=== PATIENT | female | born 1955 | race Caucasian/White ===

== ENCOUNTER → 2020-05-22 15:49 | Outpatient (CLI) | payer OTHER, SELFPAY ==
--- NOTE | 2020-05-22 | DI.MG.S_ITS ---
BILATERAL DIGITAL SCREENING MAMMOGRAM 3D/2D WITH CAD: 05/22/2020 CLINICAL: Routine screening. Comparison is made to exams dated: 06/21/2013 mammogram, 03/31/2012 mammogram, and 10/05/2006 mammogram - [facility]. The tissue of both breasts is extremely dense, which lowers the sensitivity of mammography. Current study was also evaluated with a Computer Aided Detection (CAD) system. No significant masses, calcifications, or other findings are seen in either breast. There has been no significant interval change. IMPRESSION: NEGATIVE There is no mammographic evidence of malignancy. A 1 year screening mammogram is recommended. This exam was interpreted at Station ID: [id number]. NOTE: For mammograms, a report in lay terms will be sent to the patient. Approximately 15% of breast malignancies will not be visualized mammographically. In the management of a palpable breast mass, a negative mammogram must not discourage biopsy of a clinically suspicious lesion. Electronically Signed By: Francisco juárez/natalee:05/22/2020 17:05:21 letter sent: Normal Exam ACR BI-RADS Category 1: Negative [id number]
== END ==
PROVIDERS: PCP Internal Medicine; Referring Provider Internal Medicine; Visit Provider Internal Medicine
DX: Z12.31 Encounter for screening mammogram for malignant neoplasm of breast (principal)
CPT/HCPCS: 77063; 77067

== ENCOUNTER → 2020-07-11 11:07 | Outpatient (CLI) | payer OTHER, SELFPAY ==
[2020-07-11 12:56] LABS: COVID19 -Nasal RAPID Negative (Negative)
== END ==
PROVIDERS: PCP Internal Medicine; Visit Provider Nurse Practitioner
DX: Z20.822 Contact with and (suspected) exposure to COVID-19 (principal)
CPT/HCPCS: 87635

== ENCOUNTER 2020-07-13 11:47 | Day surgery (SDC) | payer OTHER, SELFPAY ==
[2020-07-13] VITALS (12 sets, daily range): BP systolic 117–137; BP diastolic 76–90; PULSE 58–78; RESP 10–16; TEMP 36.2–37.1; O2SAT 97–99; BMI 20.5
--- NOTE | 2020-07-13 | PATH_ITS ---
[facility] Accession Number: [id number] . 01 Material submitted: . PART A: colon - ASCENDING COLON POLYP 1.5CM PART B: colon - ASCENDING COLON POLYP 4MM PART C: colon - TRANSVERSE COLON PART D: sigmoid colon - SIGMOID COLON POLYP 2MM . 01 Clinical history: . C: TRANSVERSE COLON IRRITATED MUCOSA BIOPSY . 02 Diagnosis: A. Ascending Colon, Polyp 1.5 cm, Biopsy: Tubular adenoma. . B. Ascending Colon, Polyp 4 mm, Biopsy: Tubular adenoma. . C. Transverse Colon, Biopsy: Colonic mucosa with no diagnostic abnormality. Negative for active, chronic, and microscopic colitis. Negative for dysplasia and malignancy. . D. Sigmoid Colon, Polyp 2 mm, Biopsy: Hyperplastic polyp. [facility] 07/17/2020 1336 Local . 02 Electronically signed: . Noemy Suero MD, Pathologist NPI- [id number] . 01 Gross description: . Part A: ASCENDING COLON POLYP 1.5CM: Received in formalin is 1 fragment(s) of guzman, soft tissue measuring 0.4 x 0.3 x 0.3 cm submitted entirely in 1 cassette(s) Part B: ASCENDING COLON POLYP 4MM: Received in formalin are 2 fragment(s) of guzman, soft tissue measuring 0.3 x 0.3 x 0.2 cm to 0.3 x 0.2 x 0.2 cm submitted entirely in 1 cassette(s) Part C: TRANSVERSE COLON: Received in formalin is 1 fragment(s) of guzman, soft tissue measuring 0.3 x 0.3 x 0.2 cm submitted entirely in 1 cassette(s) Part D: SIGMOID COLON POLYP 2MM: Received in formalin is 1 fragment(s) of guzman, soft tissue measuring 0.4 x 0.3 x 0.3 cm submitted entirely in 1 cassette(s) /[facility]J 07/14/2020 0750 Local . 02 Pathologist provided ICD-10: D12.2 . 02 CPT . 374042, 823774, 845321, 069813 Performed at: 01 [facility] [address] [id number] MD Francisco Henderson MD Phone: [phone] Performed at: 02 [facility] [address] [place] [id number] MD Noemy Suero MD Phone: [phone]
--- NOTE | 2020-07-13 11:50 | PM.HP.1 ---
History of Present Illness History of Present Illness Date Patient Seen: 07/13/20 Chief complaint: SDC Narrative: 64 Years Old Female seen today for consideration of a screening colonoscopy. She has had two previous colonoscopies, one with polyps. There have been no lower GI symptoms suggesting disease such as change in bowel habits, bleeding, abdominal pain or anemia. There's been no family history of colon cancer or colon polyps. Overall health issues have been stable, including no major cardiac events for at least 6 weeks. Past Medical History: Pregnancies: 0 Live Births: 0 Miscarriages: 0 Living Children: 1 (adopted) Alcoholic - Remission for 19 years Eye: Dr. 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: 2 Education: completed in 1979 Patient History Surgical History (Updated 10/13/17 @ 06:23 by Conversion Provider) History of tonsillectomy Family & Social History Family History (Updated 07/27/17 @ 00:00 by Conversion Provider) Brother Age: 63 Ulcerative colitis Meds Home Medications and Allergies Home Medications Medication Instructions Recorded Confirmed Type [LATANOPROST .005 % S] 1 drp OU HS #25 07/28/17 07/13/20 History propranolol 20 mg PO DAILY PRN 07/13/20 07/13/20 History Allergies Allergy/AdvReac Type Severity Reaction Status Date / Time No Known Drug Allergies Allergy Verified 07/13/20 12:33 Review of Systems Review of Systems ROS: Yes All systems reviewed with the patient and are negative except as otherwise documented Exam Narrative Exam Narrative: General: well developed, well nourished, in no acute distress, Head: normocephalic and atraumatic, Lungs: normal respiratory effort, clear bilaterally to auscultation, no wheezes rales or rhonchi. Heart: normal rate and regular rhythm, no murmurs, rubs, gallops, or clicks, Abdomen: abdomen soft and non-tender without masses, organomegaly, or abdominal wall hernias, bowel sounds positive. Skin: intact without suspicious lesions or rashes, Psych: alert and cooperative; normal mood and affect; normal attention span and concentration; cognition, remote and recent memory appear to be intact, Assessment & Plan Assessment & Plan narrative: 1. History of colon polyps 2. Screening for colon cancer Plan for colonoscopy. The nature and character of the procedure as well as anticipated results were discussed. The possibility of not completing the procedure was also discussed. Possible complications including aspiration pneumonia, bleeding, perforation and reaction to medications either for sedation or preparation and missed lesions were discussed. Questions were answered and proceeding to the colonoscopy was elected. Informed consent signed. I sincerely appreciate the referral allowing me to participate in this patient's care. Please contact me with any questions or concerns.
--- NOTE | 2020-07-13 11:52 | PM.OP.ENDO ---
Operative Date/Time/Diagnoses Date of procedure: 07/13/20 Procedure Notes SCOAP/Timeout: 1:04 p.m. Procedure in detail: ENDOSCOPIST: Digna Wright MD Sedation RN: Telma Hoffman RN Sedation start time: 13:05 Sedation end time: 1:46 p.m. PROCEDURE: Colonoscopy biopsy and placement of Spot INDICATIONS: 1. History of colon polyps 2. Screening for colon cancer MEDICATION: Levsin 0.125 mg sublingual, incremental doses of Versed and fentanyl until appropriate level sedation achieved. ASA CLASS: 1 CECAL WITHDRAWAL TIME: 21 minutes COMPLICATIONS: None. EXTENT OF PROCEDURE: Cecum. QUALITY OF PREP: Good with portions of liquid stool. PROCEDURE: Prior to insertion of the colonoscope, a digital rectal examination was accomplished with circumferential palpation of the distal rectal mucosa without significant findings being noted. The high-definition pediatric colonoscope was passed into the rectum in the usual fashion and advanced over to the cecum without difficulty. The ileocecal valve, appendiceal stoma, and medial wall all could be inspected and no abnormalities were seen. ASCENDING COLON: As the colonoscope was withdrawn, care was taken to expose and inspect the haustral folds and a 1.5 cm spreading sessile polyp was seen and targeted biopsy taken x1. Spot placed on the medial and lateral lomas, approximately 2 cm distal to the lesion. A 4 mm polyp was seen distal to that lesion was removed with cold biopsy forceps. Colonic mucosa throughout insertion and withdrawal appeared to be inflamed with small superficial hemorrhages, targeted biopsy taken x1 in the transverse colon. HEPATIC FLEXURE: Minor diverticulosis, otherwise, normal, no polyps. Mucosal changes as noted above. TRANSVERSE COLON: Minor diverticulosis, otherwise, normal, no polyps. Mucosal changes as noted above. DESCENDING COLON: Moderate diverticulosis, otherwise, normal, no polyps. Mucosal changes as noted above. SIGMOID COLON: 2 mm polyp removed with cold biopsy forceps. Otherwise, moderate diverticulosis and mucosal changes as noted above. RECTUM: Normal. J maneuver was produced. There was no significant perianal disease. The J maneuver was broken. The remainder of the rectum was inspected and there was no external hemorrhoid disease. The scope was withdrawn. IMPRESSION: 1. Ascending polyp x1, spreading sessile, 1.5 cm, targeted biopsy taken x1, spot placement x2 2. Ascending polyp x1, 4 mm, removed with cold biopsy forceps 3. Pancolonic inflamed mucosa 4. Sigmoid polyp x1, 2 mm, removed with cold biopsy forceps 5. Diverticulosis, right and left-sided, minor to moderate PLAN: 1. Follow-up in clinic status post pathology results. The possibility of a missed lesion including a malignancy has been discussed with the patient previously. Potential alarm symptoms have been discussed and should be reported immediately.
[2020-07-13] MEDS: LACTATED RINGERS 1,000 ML 200 ML IV (12:31)
[2020-07-13] MEDS: HYOSCYAMINE 0.125 MG TABLET PO (12:33)
[2020-07-13] MEDS: MIDAZOLAM 5 MG/5 ML VIAL IV (13:21)
[2020-07-13] MEDS: fentaNYL 250 MCG/5 ML INJ IV (13:21)
[2020-07-13] MEDS: METHYLENE BLUE 50 MG/10 ML VIAL INJ (13:42)
== END 2020-07-13 15:16 | disposition home or self-care (01) ==
PROVIDERS: PCP Internal Medicine; Referring Provider Student in an Organized Health Care Education/Training Program; Visit Provider Student in an Organized Health Care Education/Training Program
PROC: 0DJD8ZZ Inspection of Lower Intestinal Tract, Via Natural or Artificial Opening Endoscopic (ICD-10-PCS; CPT 45378; principal; 2020-07-13 13:00)
DX: Z12.11 Encounter for screening for malignant neoplasm of colon (principal); Z86.010 Personal history of colon polyps; K57.30 Diverticulosis of large intestine without perforation or abscess without bleeding; D12.2 Benign neoplasm of ascending colon
CPT/HCPCS: 45381; 45380; J2250; J3010; Q9968

== ENCOUNTER → 2020-11-08 09:19 | Outpatient (CLI) | payer OTHER, SELFPAY ==
[2020-11-08 10:27] LABS: COVID19 -Nasal RAPID Negative (Negative)
== END ==
PROVIDERS: PCP Internal Medicine; Visit Provider Specialist
DX: Z20.822 Contact with and (suspected) exposure to COVID-19 (principal)
CPT/HCPCS: 87635; C9803

== ENCOUNTER 2020-11-09 06:31 | Day surgery (SDC) | payer OTHER, SELFPAY ==
[2020-11-09] VITALS (7 sets, daily range): BP systolic 125–174; BP diastolic 74–85; PULSE 55–71; RESP 13–15; TEMP 36–36.6; O2SAT 96–98; BMI 21.4
--- NOTE | 2020-11-09 | PATH_ITS ---
[facility] Accession Number: [id number] . 01 Material submitted: . PART A: colon - ASCENDING POLYP PART B: body - POLYP AT 40CM . 02 Diagnosis: A. Ascending Colon, Polyp, Biopsy: Tubular adenoma. . B. Colon, Polyp at 40 cm, Biopsy: Tubulovillous adenoma. No evidence of malignancy or high-grade dysplasia. [facility] 11/15/2020 1049 Local . 02 Electronically signed: . Noemy Suero MD, Pathologist NPI- [id number] . 01 Gross description: . A. The specimen is received in formalin, labeled ascending polyp, and consists of two guzman-pink polyps measuring 0.5 x 0.5 x 0.3 cm and 0.8 x 0.5 x 0.4 cm. The margins are inked blue and green. The polyps are bisected and entirely submitted in cassette A1. B. The specimen is received in formalin, labeled polyp at 40 cm, and consists of multiple guzman-pink fragments of soft tissue measuring 1.2 x 1.0 x 0.4 cm in aggregate. The largest fragment is bisected, and the specimen is trisected and entirely submitted in cassette B1. (EA:[id number]) /[facility] 11/10/2020 1702 Local . 02 Pathologist provided ICD-10: D12.2, D12.6 . 02 CPT . 107242, [id number] Performed at: 01 [facility] [address] [id number] MD Francisco Henderson MD Phone: [phone] Performed at: 02 [facility] [address] [place], [place] [id number] MD Noemy Suero MD Phone: [phone]
[2020-11-09] MEDS: LACTATED RINGERS 1,000 ML 42 ML IV (07:27)
--- NOTE | 2020-11-09 07:41 | PM.HP.1 ---
History of Present Illness History of Present Illness Date Patient Seen: 11/09/20 Time Patient Seen: 07:36 Chief complaint: SDC Narrative: The patient is a woman who had a flat polyp biopsied located in her ascending colon in July by Dr. Wright. She had some plans and has delayed coming for an attempt at complete removal. She is here now for repeat colonoscopy as the lesion is in the ascending colon. Patient History Medical History Adenomatous colon polyp Healthy adult Surgical History History of tonsillectomy Family & Social History Family History Brother Age: 64 Ulcerative colitis Father Cancer Grandfather Heart disease Social History: household members none Tobacco & Substance use: Smoking Status Never smoker alcohol intake never Substance Use Type marijuana Meds Home Medications and Allergies Home Medications Medication Instructions Recorded Confirmed Type propranolol 20 mg PO DAILY PRN 07/13/20 11/09/20 History latanoprost 0.005 % eye drops 1 drp OPHTHALMIC (EYE) DAILY 08/17/20 11/09/20 History Allergies Allergy/AdvReac Type Severity Reaction Status Date / Time No Known Drug Allergies Allergy Verified 08/17/20 13:14 Review of Systems Review of Systems ROS: Yes All systems reviewed with the patient and are negative except as otherwise documented Exam Vital Signs (past 8 hours): - 11/09/20 07:28 Temperature 97.9 F Pulse Rate 71 Respiratory Rate 14 Blood Pressure 174/84 H Pulse Oximetry 98 Oxygen Delivery Method Room Air Narrative Exam Narrative: Pleasant cooperative patient no apparent distress. Lungs are clear to auscultation. No rales or rhonchi. Heart regular rate and rhythm no murmur gallop. Abdomen is soft nontender without mass. No obvious hernias. Patient is alert and oriented x3. Assessment & Plan Assessment & Plan narrative: The patient for a screening colonoscopy. I have discussed the procedure with them. Risks of bleeding, perforation which would necessitate major operation, failure to find remove all lesions, the potential tattoo were all discussed. All questions were answered. They wished to proceed.
--- NOTE | 2020-11-09 07:44 | PM.PREOP ---
Pre-operative Note COVID-19 COVID-19 status: Negative Result date/Date tested (Pos, Neg/Pending): 11/08/20 Interval Note History & Physical reviewed/Exam performed by Physician: Yes Changes to H&P: No ASA Class (for procedural sedation): I
[2020-11-09] MEDS: fentaNYL 250 MCG/5 ML INJ IV (08:15)
[2020-11-09] MEDS: MIDAZOLAM 5 MG/5 ML VIAL IV (08:30)
--- NOTE | 2020-11-09 08:45 | PM.OP.ENDO ---
Operative Date/Time/Diagnoses Date of procedure: 11/09/20 Time of procedure: 08:45 Pre-op diagnosis: Polyp in the ascending colon. Repeat colonoscopy to remove any residual. Post-op diagnosis: same (Additional polyp found at 40 cm from the anal verge on a stalk.) Procedure & Clinicians Study performed: Colonoscopy with hot snare polypectomy x2. Same procedure as scheduled: Yes Indications: Residual polyp in the ascending colon. Repeat colonoscopy to remove the remainder of the lesion. Surgeon: Fabrice Mc Procedure Notes SCOAP/Timeout: Performed Procedure in detail: The patient was placed in the left lateral decubitus position and underwent IV sedation directed by the surgeon consisting of fentanyl and Versed. Digital exam was remarkable for an increased sphincter tone. The scope was inserted and advanced through the rectum into the sigmoid, descending, transverse, and ascending colon. The patient had very extensive sigmoid diverticulosis and was quite difficult to get through the sigmoid. I had to reposition the patient in order to make my way through. In order to traverse the transverse colon I had to add a stiffener. Pressure was also applied. In the ascending colon I noted the polyp that was to be removed.. The cecum was reached identified by the ileocecal valve. The scope was gradually brought out. In the ascending colon I used a hot snare to remove the polyp in 2 pieces. I then cauterized the edges extensively to make sure there was complete destruction as this was a flat polyp. The timer was then started and the scope slowly backed out. An additional Polyp on a stalk was found at 40 cm from the anal verge. This polyp was snared across the stalk and completely removed. The scope was slowly withdrawn. The appearance was remarkable as I came through the anus for internal hemorrhoids.. The scope was removed and the patient tolerated the procedure well. The prep was good. Scope withdrawal time: 7 minutes(8.5 TOTAL) Findings: diverticulitis, internal hemorrhoids and polyp Specimen(s): other (Two polyps) Complications: none Post-procedure Recommendations: Colonscopy in 3 years Follow up: as needed Disposition: PACU
== END 2020-11-09 09:45 | disposition home or self-care (01) ==
PROVIDERS: PCP Internal Medicine; Referring Provider Internal Medicine; Visit Provider Specialist
PROC: 0DJD8ZZ Inspection of Lower Intestinal Tract, Via Natural or Artificial Opening Endoscopic (ICD-10-PCS; CPT 45378; principal; 2020-11-09 07:45)
DX: D12.2 Benign neoplasm of ascending colon (principal); D12.6 Benign neoplasm of colon, unspecified; K57.30 Diverticulosis of large intestine without perforation or abscess without bleeding
CPT/HCPCS: 45385; J2250; J3010

== ENCOUNTER 2024-02-12 07:40 | Day surgery (SDC) | payer OTHER, SELFPAY ==
[2024-02-12 08:07] VITALS: BP 151/84; PULSE 84; RESP 18; TEMP 36.3; O2SAT 96
[2024-02-12] MEDS: LACTATED RINGERS 1,000 ML 42 ML IV ×2 (08:15→09:05)
--- NOTE | 2024-02-12 08:46 | PM.HP.1 ---
History of Present Illness History of Present Illness Date Patient Seen: 02/12/24 Time Patient Seen: 08:46 Chief complaint: Colonoscopy Narrative: H/o large colon polyp resected endoscopically last year requiring 2 colonoscopies. Here for follow up. [facility] Medical History Adenomatous colon polyp Healthy adult Surgical History History of tonsillectomy Family History Brother Age: 67 Ulcerative colitis Father Cancer Grandfather Heart disease Social History marital status: unknown household members: none occupational status: employed Smoking Status: Never smoker alcohol intake: former Meds Home Medications and Allergies Home Medications Medication Instructions Recorded Confirmed Type propranolol 20 mg tablet 20 mg PO DAILY PRN Anxiety 07/13/20 02/12/24 History latanoprost 0.005 % eye drops 1 drp ophthalmic (eye) DAILY 08/17/20 02/12/24 History Allergies Allergy/AdvReac Type Severity Reaction Status Date / Time No Known Drug Allergies Allergy Verified 02/12/24 08:02 Review of Systems Review of Systems ROS: Yes All systems reviewed with the patient and are negative except as otherwise documented Exam Vital Signs (past 8 hours): - 02/12/24 08:07 Temperature 97.3 F L Pulse Rate 84 Respiratory Rate 18 Blood Pressure 151/84 H Pulse Oximetry 96 Oxygen Delivery Method Room Air Oxygen Delivery Method Room Air Const General: cooperative, healthy appearing and comfortable Nutritional Appearance: average body habitus [facility] Head: normocephalic and atraumatic Eyes General: appearance normal, both eyes and all related structures Sclera: sclerae normal Neck Neck: trachea midline Resp Effort & Inspection: normal respiratory effort and able to speak in complete sentences Cardio Rate: regular rate Rhythm: regular rhythm GI Palpation: soft and No tender Skin General: turgor normal and atrophy Neuro General: patient alert, patient awake and patient oriented x3 Cognition: normal cognition Psych Appearance: grossly normal Mental Status: mental status grossly normal Affect: normal affect Judgment: judgment good Assessment & Plan Assessment & Plan narrative: H/o colon polyps Plan: colonoscopy with anesthesia Time-Based Coding :: [TOTAL MINUTES] spent with patient and on the chart (including review of chart, obtaining history, exam, reviewing outside data, placing orders, documenting exam and treatment plan, and counseling patient) on [DATE].
--- NOTE | 2024-02-12 08:50 | PM.OP.COLON ---
Operative Date/Time/Diagnoses Date of procedure: 02/12/24 Time of procedure: 08:50 Pre-op diagnosis: Colon cancer screening Post-op diagnosis: same Procedure & Clinicians Study performed: Colonoscopy with anesthesia Same procedure as scheduled: Yes Indications: History of colon polyps Surgeon: Jesi Golden Procedure Notes Procedure in detail: Preop diagnosis: Colon cancer screening, history of colon polyps Postop diagnosis: Same Operative procedure: Colonoscopy with anesthesia Surgeon: Gela Golden MD Findings: Severe large diverticuli through the descending colon. Tattoo was seen in the right colon from previous removal of a polyp and no regrowth is identified. No other polyps identified. Procedure: Patient placed in a lateral position. Rectal exam performed showing normal tone no masses. Colonoscope was inserted into the rectum and advanced to ileocecal valve with minimal difficulty. Insufflation extraction scope and the above findings. Retroflex was included in the rectum. Impression: Tattoo identified from the previous large polyp resected by Dr. Jesusita yee. No regrowth identified. No other polyps identified. Large severe diverticulosis of the descending colon Plan: Repeat colonoscopy in 5 years unless otherwise indicated by change in clinical condition Findings: diverticulitis Specimen(s): none sent Complications: none Post-procedure Recommendations: Colonoscopy in 5 years Follow up: as needed Disposition: PACU
[2024-02-12 09:14] VITALS: BP 151/84; PULSE 62; RESP 16; TEMP 36.2; O2SAT 98
[2024-02-12 09:20] VITALS: BP 140/81; PULSE 60; RESP 15; O2SAT 98
[2024-02-12 09:24] VITALS: BP 125/88; PULSE 79; RESP 13; TEMP 36.1; O2SAT 97
[2024-02-12 09:28] VITALS: BP 150/75; PULSE 64; RESP 13; O2SAT 97
== END 2024-02-12 09:30 | disposition home or self-care (01) ==
PROVIDERS: PCP Internal Medicine; Referring Provider Surgery; Visit Provider Surgery
PROC: 0DJD8ZZ Inspection of Lower Intestinal Tract, Via Natural or Artificial Opening Endoscopic (ICD-10-PCS; CPT 45378; principal; 2024-02-12 08:45)
DX: Z12.11 Encounter for screening for malignant neoplasm of colon (principal); Z86.010 Personal history of colon polyps; K57.30 Diverticulosis of large intestine without perforation or abscess without bleeding
CPT/HCPCS: G0105; J2704

== ENCOUNTER → 2024-09-12 14:47 | Outpatient (CLI) | payer OTHER, SELFPAY ==
--- NOTE | 2024-09-12 14:49 | DI.MG.S_ITS ---
MM screening mammo BI: 09/12/2024. BI-RADS: 1 CLINICAL: 68-year old female for bilateral screening mammogram. Tyrer-Cuzick lifetime risk of 4.7%. No personal or first-degree family history of breast cancer. PRIOR EXAMS 05/22/2020. MAMMOGRAPHY TECHNIQUE: 2D and 3D (tomosynthesis) digital mammographic views obtained, with additional images as needed for full coverage. Current study was also evaluated with a Computer Aided Detection (CAD) system. DENSITY C. The breasts are heterogeneously dense, which may obscure small masses. MAMMOGRAPHY FINDINGS Bilateral: No suspicious mass, asymmetry, microcalcification, or other abnormality seen. No significant change from comparison. IMPRESSION: * No evidence of malignancy. RECOMMENDATIONS Bilateral * Annual screening mammography. OVERALL ASSESSMENT CATEGORY BI-RADS-1: Negative. The [employer] recommends annual screening mammography beginning at age 40 for women with average risk of breast cancer. ELECTRONICALLY SIGNED: Roz Alexander M.D. on 09/12/2024 at 03:55:13 PM PT Interpreting Station ID: [id number]
--- NOTE | 2024-09-12 14:49 | DI.RAD.S_ITS ---
PROCEDURE: XR DEXA AXIAL SKELETON INDICATIONS: SCREENING FOR OSTEOPOROSIS/ROUTINE SCREENING COMPARISON: None. FINDINGS: Lumbar Spine: Bone mineral density 0.887 g/cm2, T score -1.5. Left Femoral Neck: Bone mineral density 0.620 g/cm2, T score -2.1. Left Hip: Bone mineral density 0.792 g/cm2, T score -1.2. Fracture Risk Calculation (when applicable): 10-year fracture risk of a major osteoporotic fracture 11 percent and of a hip fracture 2.4 percent. (T score greater or equal to -1.0 to: NORMAL) (T score from -1.1 to -2.4: OSTEOPENIA) (T score less than or equal to -2.5: OSTEOPOROSIS) IMPRESSION: Osteopenia--- recommend repeat DEXA in 2-3 years for reassessment. Follow-up guidelines as follows: Osteoporosis: Consider a repeat DEXA and Vertebral Fracture Assessment (VFA) exam in 2 years or sooner if medically necessary, to reassess this patient's status. Osteopenia: Consider a repeat DEXA in 2-3 years to reassess this patient's status, or if there is a new clinical indication. Normal: Consider a repeat DEXA in 5 years or sooner, or if there is a new clinical indication. All treatment decisions require clinical judgment and consideration of individual patient factors, including patient preferences, comorbidities, previous drug use, risk factors not captured in the FRAX model (e.g., frailty, falls, vitamin D deficiency, increased bone turnover, interval significant decline in bone density ) and possible under- or over-estimation of fracture risk by FRAX. In addition, the NOF Guide recommends that FDA-approved medical therapies be considered in postmenopausal women and men age >= 50 years with a: * Hip or vertebral (clinical or morphometric) fracture * T-score of <=-2.5 at the spine or hip * Ten-year fracture probability by FRAX of >= 3% for hip fracture or >=20% for major osteoporotic fracture. Dictated by: Jostin Foster M.D. on 09/12/2024 at 20:30 Approved by: Jostin Foster M.D. on 09/12/2024 at 20:31
== END ==
PROVIDERS: PCP Family Medicine; Referring Provider Internal Medicine; Visit Provider Internal Medicine
DX: Z78.0 Asymptomatic menopausal state (principal); Z12.31 Encounter for screening mammogram for malignant neoplasm of breast; R92.333 Mammographic heterogeneous density, bilateral breasts; M85.89 Other specified disorders of bone density and structure, multiple sites
CPT/HCPCS: 77063; 77067; 77080